=== PATIENT | male | born 1990 | race African-American/Black ===

== ENCOUNTER 2020-01-06 10:18 | Emergency (ER) | payer MEDICAID ==
[~2020-01-06] VITALS: Ht 172.7 cm; Wt 79.5 kg
[2020-01-06] MEDS ORDERED: ONDANSETRON HCL 4 MG/2 ML VIAL IVP ONE (11:30)
[2020-01-06] MEDS ORDERED: SODIUM CHLORIDE 0.9% 1,000 ML IV ONE (11:30)
[2020-01-06] MEDS ORDERED: KETOROLAC TROMETHAMINE 30 MG/ML VIAL IVP ONE (11:30)
[2020-01-06 12:02] LABS: BASOPHILS % (AUTO) 0.4 % (0.0-2.0); HEMATOCRIT 49.3 % (41-53); HEMOGLOBIN 16.7 g/dL (13.5-17.5); LYMPHOCYTES % (AUTO) 15.8 % (22.0-44.0); MEAN CORPUSCULAR HEMOGLOBIN 31.1 pg (26.0-34.0); MEAN CORPUSCULAR HGB CONC 33.8 G/dL (31.0-37.0); MEAN CORPUSCULAR VOLUME 92 fL (80-100); MONOCYTES % (AUTO) 7.8 % (2.0-9.0); NEUTROPHILS # (AUTO) 9.2 K/uL (1.8-7.7); PLATELET COUNT (AUTO) 369 K/uL (150-450); RED BLOOD CELL COUNT(AUTO) 5.36 MIL/uL (4.50-5.90); RED CELL DISTRIBUTION WIDTH 13.4 % (11.5-14.5)
[2020-01-06 12:20] LABS: ANION GAP 11 mmol/L (8-16); CALCIUM, TOTAL 9.6 mg/dL (8.8-10.5); CARBON DIOXIDE 25 mmol/L (22-29); CHLORIDE 99 mmol/L (98-107); CREATININE 1.03 mg/dL (0.60-1.30); GLOMERULAR FILTR. RATE CALC > 60 mL/min (>60); GLUCOSE,RANDOM 84 mg/dL (70-110); POTASSIUM 3.9 mmol/L (3.5-5.1); SODIUM SERUM 135 mmol/L (136-145); UREA NITROGEN, BLOOD 20 mg/dL (7-18)
[2020-01-06 12:30] LABS: ALANINE AMINOTRANSFERASE 30 U/L (12-78); ALBUMIN 4.7 g/dL (3.4-5.0); ALKALINE PHOSPHATASE 88 U/L (46-116); ASPARTATE AMINOTRANSFERASE 24 U/L (15-37); BILIRUBIN,TOTAL 0.7 mg/dL (0.1-1.0); LIPASE 123 U/L (73-393); TOTAL PROTEIN, SERUM 8.7 g/dL (6.4-8.2)
[2020-01-06 14:25] VITALS: BP 129/71
== END 2020-01-06 14:29 | disposition home or self-care (01) ==
LOC: EMS 10:23
DX: R10.13 Epigastric pain (principal); R11.2 Nausea with vomiting, unspecified; F12.90 Cannabis use, unspecified, uncomplicated
CPT/HCPCS: 36415; 74176; 80053; 83690; 85025; 96361; 96374; 96375; 99285; J1885; J2405; J7030

== ENCOUNTER 2021-03-21 08:17 | Emergency (ER) | payer MEDICAID ==
[~2021-03-21] VITALS: Ht 177.8 cm; Wt 79.5 kg
[2021-03-21 09:43] VITALS: BP 143/87
[2021-03-21] MEDS ORDERED: IBUPROFEN 600 MG TABLET PO ONE (10:00)
[2021-03-21] MEDS ORDERED: ACETAMINOPHEN 500 MG TABLET PO ONE (10:00)
== END 2021-03-21 10:32 | disposition home or self-care (01) ==
LOC: EMS 08:17
DX: S20.211A Contusion of right front wall of thorax, initial encounter (principal); F12.90 Cannabis use, unspecified, uncomplicated; V23.4XXA Motorcycle driver injured in collision with car, pick-up truck or van in traffic accident, initial encounter; Y93.89 Activity, other specified; Y92.89 Other specified places as the place of occurrence of the external cause; Y99.8 Other external cause status
CPT/HCPCS: 71101; 99283; G0238

== ENCOUNTER 2022-08-20 10:17 | Emergency (ER) | payer MEDICAID ==
[~2022-08-20] VITALS: Ht 177.8 cm; Wt 81.0 kg
[2022-08-20 10:37] VITALS: BP 121/75
[2022-08-20] MEDS ORDERED: PENICILLIN V POTASSIUM 500 MG TABLET PO ONE (11:00)
[2022-08-20] MEDS ORDERED: PENI500T2 PO (11:17)
[2022-08-20] MEDS ORDERED: IBUP-1492 PO (11:18)
== END 2022-08-20 11:27 | disposition home or self-care (01) ==
LOC: EMS 10:21
DX: K02.9 Dental caries, unspecified (principal); F12.90 Cannabis use, unspecified, uncomplicated
CPT/HCPCS: 99283

== ENCOUNTER 2023-01-15 17:11 | Emergency (ER) | payer MEDICAID ==
[~2023-01-15] VITALS: Ht 177.8 cm; Wt 81.8 kg
[~2023-01-15 17:11] MED LIST: IBUP-1492 PO; PENI500T2 PO
[2023-01-15 17:20] VITALS: BP 113/66
[2023-01-15] MEDS ORDERED: MUPI15CR12 TP (17:41)
[2023-01-15] MEDS ORDERED: CEPH-558 PO (17:41)
[2023-01-15] MEDS ORDERED: DOXY-354 PO (17:41)
== END 2023-01-15 17:59 | disposition home or self-care (01) ==
LOC: EMS 17:11
DX: L02.828 Furuncle of other sites (principal); F12.90 Cannabis use, unspecified, uncomplicated
CPT/HCPCS: 99283; Z7502

== ENCOUNTER 2023-07-07 08:46 | Emergency (ER) | payer MEDICAID ==
[~2023-07-07] VITALS: Ht 177.8 cm; Wt 86.4 kg
[~2023-07-07 08:46] MED LIST changes: +CEPH-558 PO; +DOXY-354 PO; -IBUP-1492 PO; +MUPI15CR12 TP; -PENI500T2 PO
[2023-07-07 08:51] VITALS: TEMP 98.7
[2023-07-07 09:02] LABS: COVID AG,FIA SOURCE NASAL SWAB
[2023-07-07 09:19] LABS: RAPID GROUP A STREP NEGATIVE (NEGATIVE)
[2023-07-07 09:30] LABS: BASOPHILS % (AUTO) 0.5 % (0.0-2.0); EOSINOPHILS % (AUTO) 1.8 % (1.0-6.0); HEMATOCRIT 39.5 % (41-53); HEMOGLOBIN 13.6 g/dL (13.5-17.5); LYMPHOCYTES # (AUTO) 1.8 K/uL (1.0-4.8); LYMPHOCYTES % (AUTO) 20.8 % (22.0-44.0); MEAN CORPUSCULAR HEMOGLOBIN 32.7 pg (26.0-34.0); MEAN CORPUSCULAR HGB CONC 34.4 G/dL (31.0-37.0); MEAN CORPUSCULAR VOLUME 95 fL (80-100); MONOCYTES # (AUTO) 0.8 K/uL (0.1-1.0); MONOCYTES % (AUTO) 9.7 % (2.0-9.0); NEUTROPHILS # (AUTO) 5.7 K/uL (1.8-7.7); NEUTROPHILS % (AUTO) 67.2 % (40.0-70.0); PLATELET COUNT (AUTO) 360 K/uL (150-450); RED BLOOD CELL COUNT(AUTO) 4.16 MIL/uL (4.50-5.90); RED CELL DISTRIBUTION WIDTH 13.6 % (11.5-14.5); WHITE BLOOD COUNT (AUTO) 8.4 K/uL (4.5-11.0)
[2023-07-07 09:31] LABS: INFLUENZA TYPE A NEGATIVE FOR TYPE A (NEGATIVE); INFLUENZA TYPE B NEGATIVE FOR TYPE B (NEGATIVE); SARS-COV2 (COVID) ANTIGEN,FIA Negative (Negative)
[2023-07-07 09:35] LABS: ANION GAP 4 mmol/L (8-16); CALCIUM, TOTAL 8.8 mg/dL (8.8-10.5); CARBON DIOXIDE 30 mmol/L (22-29); CHLORIDE 103 mmol/L (98-107); CREATININE 1.11 mg/dL (0.60-1.30); GLOMERULAR FILTR. RATE CALC > 60 mL/min (>60); GLUCOSE,RANDOM 90 mg/dL (70-110); SODIUM SERUM 137 mmol/L (136-145); UREA NITROGEN, BLOOD 14 mg/dL (7-18)
[2023-07-07 09:41] LABS: ALANINE AMINOTRANSFERASE 27 U/L (12-78); ALBUMIN 3.6 g/dL (3.4-5.0); ALKALINE PHOSPHATASE 68 U/L (46-116); ASPARTATE AMINOTRANSFERASE 27 U/L (15-37); BILIRUBIN,TOTAL 0.6 mg/dL (0.1-1.0); TOTAL PROTEIN, SERUM 7.4 g/dL (6.4-8.2)
[2023-07-07] MEDS ORDERED: IBUPROFEN 600 MG TABLET PO ONE (10:00)
[2023-07-07] MEDS ORDERED: ACETAMINOPHEN 500 MG TABLET PO ONE (10:00)
[2023-07-07] MEDS ORDERED: ONDANSETRON HCL 4 MG TABLET PO ONE (10:00)
[2023-07-07] MEDS ORDERED: ACET-3385 PO (10:03)
[2023-07-07] MEDS ORDERED: IBUP-1492 PO (10:03)
[2023-07-07] MEDS ORDERED: ONDA-104 PO (10:03)
[2023-07-07 10:07] VITALS: BP 132/76; PULSE 77; RESP 18
== END 2023-07-07 10:32 | disposition home or self-care (01) ==
LOC: EMS 08:46
DX: B34.9 Viral infection, unspecified (principal); F12.90 Cannabis use, unspecified, uncomplicated; Z20.822 Contact with and (suspected) exposure to COVID-19
CPT/HCPCS: 99284; 87426; 80053; 85025; 87430; 87804; 36415; Q0162; C9803

== ENCOUNTER 2023-08-15 10:06 | Emergency (ER) | payer MEDICAID ==
[~2023-08-15] VITALS: Ht 177.8 cm; Wt 86.4 kg
[~2023-08-15 10:06] MED LIST changes: +ACET-3385 PO; +IBUP-1492 PO; +ONDA-104 PO
[2023-08-15 10:37] VITALS: TEMP 98
[2023-08-15] MEDS ORDERED: ONDANSETRON HCL 4 MG/2 ML VIAL IVP ONE (11:30)
[2023-08-15] MEDS ORDERED: SODIUM CHLORIDE 0.9% 1,000 ML IV ONE (11:30)
[2023-08-15] MEDS ORDERED: KETOROLAC TROMETHAMINE 30 MG/ML VIAL IVP ONE (11:30)
[2023-08-15] MEDS ORDERED: MECLIZINE HCL 25 MG TABLET PO ONE (11:45)
[2023-08-15] MEDS ORDERED: ACETAMINOPHEN 500 MG TABLET PO ONE (11:45)
[2023-08-15 11:51] LABS: BASOPHILS % (AUTO) 0.5 % (0.0-2.0); EOSINOPHILS % (AUTO) 2.1 % (1.0-6.0); HEMATOCRIT 45.4 % (41-53); HEMOGLOBIN 15.7 g/dL (13.5-17.5); LYMPHOCYTES # (AUTO) 1.8 K/uL (1.0-4.8); LYMPHOCYTES % (AUTO) 30.5 % (22.0-44.0); MEAN CORPUSCULAR HEMOGLOBIN 32.6 pg (26.0-34.0); MEAN CORPUSCULAR HGB CONC 34.6 G/dL (31.0-37.0); MEAN CORPUSCULAR VOLUME 94 fL (80-100); MONOCYTES # (AUTO) 0.4 K/uL (0.1-1.0); MONOCYTES % (AUTO) 7.7 % (2.0-9.0); NEUTROPHILS # (AUTO) 3.5 K/uL (1.8-7.7); NEUTROPHILS % (AUTO) 59.2 % (40.0-70.0); PLATELET COUNT (AUTO) 351 K/uL (150-450); RED BLOOD CELL COUNT(AUTO) 4.83 MIL/uL (4.50-5.90); RED CELL DISTRIBUTION WIDTH 13.4 % (11.5-14.5); WHITE BLOOD COUNT (AUTO) 5.8 K/uL (4.5-11.0)
[2023-08-15 12:12] LABS: ANION GAP 9 mmol/L (8-16); CALCIUM, TOTAL 9.2 mg/dL (8.8-10.5); CARBON DIOXIDE 30 mmol/L (22-29); CHLORIDE 103 mmol/L (98-107); CREATININE 1.05 mg/dL (0.60-1.30); GLOMERULAR FILTR. RATE CALC > 60 mL/min (>60); GLUCOSE,RANDOM 95 mg/dL (70-110); POTASSIUM 3.8 mmol/L (3.5-5.1); SODIUM SERUM 142 mmol/L (136-145); UREA NITROGEN, BLOOD 16 mg/dL (7-18)
[2023-08-15 12:18] LABS: ALANINE AMINOTRANSFERASE 25 U/L (12-78); ALBUMIN 4.2 g/dL (3.4-5.0); ALKALINE PHOSPHATASE 75 U/L (46-116); ASPARTATE AMINOTRANSFERASE 23 U/L (15-37); BILIRUBIN,TOTAL 1.2 mg/dL (0.1-1.0); LIPASE 41 U/L (16-77); TOTAL PROTEIN, SERUM 7.4 g/dL (6.4-8.2)
[2023-08-15] MEDS ORDERED: ONDA-104 PO (12:59)
[2023-08-15] MEDS ORDERED: ACET-66 PO (12:59)
[2023-08-15] MEDS ORDERED: MECL-134 PO (12:59)
[2023-08-15 13:12] VITALS: BP 118/89; PULSE 76; RESP 16
== END 2023-08-15 13:24 | disposition home or self-care (01) ==
LOC: EMS 10:11
DX: R42 Dizziness and giddiness (principal); R11.2 Nausea with vomiting, unspecified; F17.210 Nicotine dependence, cigarettes, uncomplicated; F12.90 Cannabis use, unspecified, uncomplicated
CPT/HCPCS: 99284; 96374; 96361; 96375; 80053; 83690; 85025; J1885; J2405; J7030; 36415-L1; 36415-TC

== ENCOUNTER 2023-09-03 11:29 | Emergency (ER) | payer MEDICAID ==
[~2023-09-03] VITALS: Ht 177.8 cm; Wt 81.8 kg
[~2023-09-03 11:29] MED LIST changes: +ACET-66 PO; +MECL-134 PO
[2023-09-03 11:39] VITALS: BP 123/84; PULSE 86; RESP 18; TEMP 98.1
== END 2023-09-03 13:52 | disposition home or self-care (01) ==
LOC: EMS 11:37
DX: R19.7 Diarrhea, unspecified (principal); R11.2 Nausea with vomiting, unspecified; F17.210 Nicotine dependence, cigarettes, uncomplicated; F12.90 Cannabis use, unspecified, uncomplicated
CPT/HCPCS: 99282; Z7502